=== PATIENT | male | born 1960 | race Caucasian/White ===

== ENCOUNTER 2020-02-18 07:11 | Day surgery (SDC) | payer OTHER ==
[2020-02-16 11:58] LABS: COVID AG,FIA SOURCE NASOPHARYNGEAL
[~2020-02-18] VITALS: Ht 154.9 cm; Wt 77.5 kg
[~2020-02-18 07:11] MED LIST: ASPI-891 PO; ATOR40TA71 PO; BRIM15OS OU; CLOP75TA14 PO; D-ME118S13 PO; DORZ210OS OU; FAMO-136 PO; GEMF600T89 PO; KETOROLAC TROMETHAMINE 0.5% 5 ML OPHTHALMIC SOLUTION ONE; LISI-622 PO; METF-446 PO; METO-408 PO; MOXIFLOXACIN HCL 0.5% 3 ML OPHTHALMIC SOLUTION ONE; MULT-1259 PO; PHENYLEPHRINE HCL 2.5% 2 ML OPHTHALMIC SOLUTION ONE; RINGERS SOLUTION,LACTATED 500 ML IV ONE; SITA100 PO; TIMO.5OS OU; TROPICAMIDE 1% 2 ML OPHTHALMIC SOLUTION ONE
[2020-02-18] MEDS ORDERED: LIDOCAINE/PF 1% 2 ML VIAL IM ONE (07:12)
[2020-02-18] MEDS ORDERED: HYALURONATE SOD/CHONDROITIN SOD 0.5 ML VIAL IO ONE (07:12)
[2020-02-18] MEDS ORDERED: EPINEPHrine 1:1,000 [1 MG/ML] AMP IM ONE (07:12)
[2020-02-18] MEDS ORDERED: TETRACAINE HCL/PF 0.5% 4 ML OPHTHALMIC SOLUTION OU ONE (07:12)
[2020-02-18] MEDS ORDERED: HYALURONATE SODIUM 12 MG/ML 0.8 ML SYRINGE IO ONE (07:12)
[2020-02-18] MEDS ORDERED: POVIDONE-IODINE 10% 15 ML SOLUTION UD TP ONE (07:12)
[2020-02-18] MEDS ORDERED: BALANCED SALT 15 ML OPHTHALMIC IRRIG.SOLN OU ONE (07:12)
[2020-02-18] MEDS: MOXIFLOXACIN HCL 0.5% 3 ML OPHTHALMIC SOLUTION OS SCH ×3 (07:55→08:12)
[2020-02-18] MEDS: KETOROLAC TROMETHAMINE 0.5% 5 ML OPHTHALMIC SOLUTION OS SCH ×3 (07:56→08:12)
[2020-02-18] MEDS: TROPICAMIDE 1% 2 ML OPHTHALMIC SOLUTION OS SCH ×3 (07:56→08:12)
[2020-02-18] MEDS: PHENYLEPHRINE HCL 2.5% 2 ML OPHTHALMIC SOLUTION OS SCH ×3 (07:56→08:12)
[2020-02-18 08:01] LABS: GLUCOMETER DEV NAME(LOC) SDS.; GLUCOSE,POINT OF CARE 116 MG/DL (70-110)
[2020-02-18] MEDS ORDERED: MIDAZOLAM HCL 2 MG/2 ML VIAL IVP ONE (12:00)
[2020-02-18] MEDS ORDERED: FentaNYL CITRATE-PF 100 MCG/2 ML VIAL IVP ONE (12:00)
== END 2020-02-18 11:55 | disposition home or self-care (01) ==
LOC: SURGERY 07:11
PROVIDERS: ATTEND Ophthalmology
DX: E11.36 Type 2 diabetes mellitus with diabetic cataract (principal); H25.12 Age-related nuclear cataract, left eye; E11.39 Type 2 diabetes mellitus with other diabetic ophthalmic complication; H40.1122 Primary open-angle glaucoma, left eye, moderate stage; E78.00 Pure hypercholesterolemia, unspecified; I10 Essential (primary) hypertension; E66.3 Overweight; Z68.32 Body mass index [BMI] 32.0-32.9, adult; Z79.899 Other long term (current) drug therapy; Z20.828 Contact with and (suspected) exposure to other viral communicable diseases
CPT/HCPCS: 66984; 0191T; 82962; 87426; 93005; C1783; C9803; J0171; J2250; J3010; J3490 ×2; J7120; V2632